=== PATIENT | male | born 1955 | race Caucasian/White ===

== ENCOUNTER 2018-01-21 13:33 | Outpatient (CLI) | payer MEDICARE ==
--- NOTE | 2018-01-21 11:59 | ULT ---
ABDOMINAL ULTRASOUND: INDICATIONS: Hepatitis C. FINDINGS: The patient is post cholecystectomy. The common bile duct is normal in caliber. The visualized live r and spleen appear unremarkable. The abdominal aorta and IVC appear unremarkable, as visualized. T he pancreas is partially imaged and appears unremarkable, as visualized. Both kidneys are imaged and appear unremarkable. There is a 2.5 cm cyst from the superior pole, right kidney. No other abnorma lity. IMPRESSION: 1. Right renal cyst. 2. Examination otherwise unremarkable. POS: [facility]
== END 2018-01-21 13:34 | disposition home or self-care (01) ==
LOC: SCSULT 13:33
PROVIDERS: ATTEND Internal Medicine
DX: B19.20 Unspecified viral hepatitis C without hepatic coma (principal); N28.1 Cyst of kidney, acquired
CPT/HCPCS: 76700